=== PATIENT | male | born 1970 | race Two or more races ===

== ENCOUNTER 2020-03-02 04:22 | Inpatient (IN) | payer BC, OTHER, SELFPAY ==
[~2020-03-02] VITALS: Ht 160 cm; Wt 70.9 kg
--- NOTE | 2020-03-02 04:30 | NUR ---
Late entry from 0430: Patient BIB ambulance from home after an unwitnessed syncopal episode. Per EMS, patient's BP upon arrival was 60s systolic. After fluid admin, BP increased to 90s systolic. Per family, patient was in the bathroom and they heard a crash from the outside. They went in to find patient passed out on the floor. Patient is dizzy. AAOx4 but slightly confused about the event. Patient denies drug use. Respirations even and unlabored.
[2020-03-02 04:59] LABS: BASOPHILS # (AUTO) 0.02 x10^3/uL (0-0.1); BASOPHILS % (AUTO) 0 % (0-1); EOSINOPHILS # (AUTO) 0.07 x10^3/uL (0-0.4); EOSINOPHILS % (AUTO) 1 % (1-7); LYMPHOCYTES # (AUTO) 0.78 x10^3/uL (1-3.4); LYMPHOCYTES % (AUTO) 10 % (22-44); MD NO; MEAN CORPUSCULAR HEMOGLOBIN 28.9 pg (27.5-34.5); MEAN CORPUSCULAR HGB CONC 32.5 g/dL (33.2-36.2); MEAN CORPUSCULAR VOLUME 88.9 fL (81-97); MEAN PLATELET VOLUME 8.5 fL (7.4-10.4); MONOCYTES # (AUTO) 0.56 x10^3/uL (0.2-0.8); MONOCYTES % (AUTO) 7 % (2-9); NEUTROPHILS # (AUTO) 6.36 x10^3/uL (1.8-6.8); NEUTROPHILS % (AUTO) 82 % (42-75); PLATELET COUNT 240 x10^3/uL (130-400); RED BLOOD COUNT 3.64 x10^6/uL (4.38-5.82); RED CELL DISTRIBUTION WIDTH 12.9 % (9.4-14.8)
[2020-03-02] MEDS ORDERED: SODIUM CHLORIDE FLUSH 10ML SYR IVF ONE (05:00)
[2020-03-02] MEDS ORDERED: SODIUM CHLORIDE 0.9% 1,000ML IVBOLUS ONE ×2 (05:00→05:30)
[2020-03-02 05:09] LABS: ALBUMIN 2.4 g/dL (3.4-5.0); ANION GAP 8 mmol/L (5-15); CALCIUM 6.8 mg/dL (8.5-10.1); CHLORIDE 107 mmol/L (98-107); CREATININE 0.91 mg/dL (0.7-1.3)
[2020-03-02 05:14] LABS: ALKALINE PHOSPHATASE 74 U/L (45-117); BILIRUBIN,TOTAL 3.6 mg/dL (0.2-1.0); TOTAL PROTEIN 4.9 g/dL (6.4-8.2); TROPONIN I 0.034 ng/mL (0.000-0.045)
[2020-03-02 05:16] LABS: ALANINE AMINOTRANSFERASE 1870 U/L (12-78)
[2020-03-02 05:19] LABS: SALICYLATE LEVEL < 1.7 mg/dL (2.8-20.0)
[2020-03-02 05:58] LABS: AMPHETAMINE SCREEN, URINE Negative (Negative); BARBITURATE SCREEN, URINE Negative (Negative); BENZODIAZEPINE SCREEN, URINE Negative (Negative); CANNABINOID SCREEN, URINE Negative (Negative); COCAINE SCREEN, URINE Negative (Negative); METHADONE SCREEN, URINE Negative (Negative); OPIATE SCREEN, URINE Negative (Negative)
--- NOTE | 2020-03-02 06:56 | NUR ---
Report given to EUSEBIO Buck.
--- NOTE | 2020-03-02 06:57 | NUR ---
received bedside report from florencio cabello.
--- NOTE | 2020-03-02 07:35 | NUR ---
PT RESTING ON GURNEY. 2ND LITER STILL INFUSING FROM PRIOR SHIFT. VSS. BEDSIDE. NO NEEDS REQUESTED AT THIS TIME
[2020-03-02] MEDS ORDERED: LACTATED RINGERS 1,000 ML IVBOLUS ONE (09:00)
--- NOTE | 2020-03-02 09:05 | NUR ---
late entry for 0840. ORTHOSTATIC VS COMPLETED. PT STATED HE FELT THE MOST DIZZY SITTING. PT WAS STABLE STANDING. BEDSIDE. LR ADMINISTERED PER ORDER. NADDuglas. ALSO SPOKE WITH DAUGHTER TO GIVE UPDATE. NO OTHER NEEDS REQUESTED AT THIS TIME
--- NOTE | 2020-03-02 09:58 | NUR ---
ORTHO VS COMPLETED. PT STATES HE FEELS BETTER AND BARLEY DIZZY WHEN HE SITS. NO C/O DIZZINESS WHEN HE IS STANDING. NADN.
--- NOTE | 2020-03-02 10:13 | NUR ---
PT REQUESTING TO USE BATHROOM FOR BM. ;PT STATES HE IS NOT DIZZY WHEN STANDING. ASSISTANCE TO BATHROOM. WITH PT IN BATHROOM.
--- NOTE | 2020-03-02 10:24 | NUR ---
PT ASSISTED BACK FROM BATHROOM. PT MORE WEAK THAN WHEN HE WENT TO BATHROOM. OBVIOUS DARK STOOL WITH BRB. NOTIFIED EDMD. PT BACK TO [facility] S[facility]. ALL MONITORS ATTACHED.
[2020-03-02] MEDS ORDERED: PANTOPRAZOLE 40 MG IV IVPush ONE (11:00)
[2020-03-02] MEDS ORDERED: PANTOPRAZOLE 80 MG in SODIUM CHLORIDE 0.9% 50 ML IV ONE ×2 (11:00→12:00)
[2020-03-02] MEDS ORDERED: PANTOPRAZOLE 80 MG in SODIUM CHLORIDE 0.9% 100 ML IV SCH (11:00)
[2020-03-02 11:10] LABS: ALBUMIN 2.3 g/dL (3.4-5.0); BILIRUBIN, DIRECT 2.2 mg/dL (0.1-0.2)
[2020-03-02 11:16] LABS: INTERNATIONAL NORMALIZED RATIO 1.54 (0.93-1.1); PROTHROMBIN TIME 16.4 Seconds (9.6-11.5)
[2020-03-02 11:17] LABS: BILIRUBIN,INDIRECT 1.3 mg/dL (0.0-2.0); BILIRUBIN,TOTAL 3.5 mg/dL (0.2-1.0); TOTAL PROTEIN 4.7 g/dL (6.4-8.2)
--- NOTE | 2020-03-02 11:32 | NUR ---
ultrasound bedside. nadn. bedside.
--- NOTE | 2020-03-02 11:46 | NUR ---
REPORT TO EUSEBIO WHITEHEAD. RECEIVING RN AWARE THAT BLOOD HAS NOT BEEN STARTED IN ED AND WILL HAVE TO ADMINISTER ON THE FLOOR. ALL QUESTIONS ANSWERED.
[2020-03-02] MEDS ORDERED: PANTOPRAZOLE 40 MG IV ONE (11:49)
[2020-03-02] MEDS ORDERED: ONDANSETRON 2MG/ML, 2ML IV PRN (12:00)
[2020-03-02] MEDS: PANTOPRAZOLE 80 MG in SODIUM CHLORIDE 0.9% 100 ML IV SCH ×2 (12:00→21:35)
[2020-03-02] MEDS ORDERED: CHLORDIAZEPOXIDE 25 MG CAPSULE PO PRN (12:00)
[2020-03-02] MEDS ORDERED: ACETAMINOPHEN 325 MG TABLET PO ONE (12:00)
[2020-03-02 12:16] LABS: TROPONIN I 0.055 ng/mL (0.000-0.045)
--- NOTE | 2020-03-02 12:16 | NUR ---
PT BEING TRANSFERRED TO FLOOR. PROTONIX BOLUS COMPLETE. MANINTENANCE PROTONIX INFUSING AT 10mL/HR PT LEFT WITH ALL PERSONAL BELONGINGS.
--- NOTE | 2020-03-02 12:20 | NUR ---
BLOOD CONSENT SIGNED AND PLACED WITH PT CHART
[2020-03-02 12:33] VITALS: BP 106/68
[2020-03-02 13:12] VITALS: BP 110/72
[2020-03-02 13:23] VITALS: BP 110/72
[2020-03-02 13:35] VITALS: BP 112/70
[2020-03-02 15:08] VITALS: BP 111/71
[2020-03-02 17:13] LABS: TROPONIN I 0.029 ng/mL (0.000-0.045)
[2020-03-02 17:15] LABS: BASOPHILS # (AUTO) 0.02 x10^3/uL (0-0.1); BASOPHILS % (AUTO) 0 % (0-1); EOSINOPHILS # (AUTO) 0.05 x10^3/uL (0-0.4); EOSINOPHILS % (AUTO) 1 % (1-7); LYMPHOCYTES # (AUTO) 1.76 x10^3/uL (1-3.4); LYMPHOCYTES % (AUTO) 22 % (22-44); MD NO; MEAN CORPUSCULAR HEMOGLOBIN 29.6 pg (27.5-34.5); MEAN CORPUSCULAR HGB CONC 32.8 g/dL (33.2-36.2); MEAN CORPUSCULAR VOLUME 90.3 fL (81-97); MEAN PLATELET VOLUME 9.6 fL (7.4-10.4); MONOCYTES # (AUTO) 0.69 x10^3/uL (0.2-0.8); MONOCYTES % (AUTO) 9 % (2-9); NEUTROPHILS # (AUTO) 5.33 x10^3/uL (1.8-6.8); NEUTROPHILS % (AUTO) 68 % (42-75); PLATELET COUNT 194 x10^3/uL (130-400)
[2020-03-02] MEDS: SODIUM CHLORIDE 0.9% 1,000 ML IV SCH (17:36)
[2020-03-02 20:56] LABS: OCCULT BLOOD POSITIVE (NEGATIVE)
[2020-03-02 21:09] VITALS: BP 109/73
[2020-03-02 21:28] LABS: BASOPHILS # (AUTO) 0.02 x10^3/uL (0-0.1); BASOPHILS % (AUTO) 0 % (0-1); EOSINOPHILS # (AUTO) 0.06 x10^3/uL (0-0.4); EOSINOPHILS % (AUTO) 1 % (1-7); LYMPHOCYTES # (AUTO) 1.47 x10^3/uL (1-3.4); LYMPHOCYTES % (AUTO) 19 % (22-44); MD NO; MEAN CORPUSCULAR HEMOGLOBIN 29.8 pg (27.5-34.5); MEAN CORPUSCULAR HGB CONC 33.3 g/dL (33.2-36.2); MEAN CORPUSCULAR VOLUME 89.3 fL (81-97); MEAN PLATELET VOLUME 9.3 fL (7.4-10.4); MONOCYTES # (AUTO) 0.72 x10^3/uL (0.2-0.8); MONOCYTES % (AUTO) 9 % (2-9); NEUTROPHILS # (AUTO) 5.36 x10^3/uL (1.8-6.8); NEUTROPHILS % (AUTO) 70 % (42-75); PLATELET COUNT 186 x10^3/uL (130-400); RED BLOOD COUNT 3.31 x10^6/uL (4.38-5.82); RED CELL DISTRIBUTION WIDTH 14.1 % (9.4-14.8)
[2020-03-02 22:11] LABS: OCCULT BLOOD POSITIVE (NEGATIVE)
[2020-03-03] VITALS (9 sets, daily range): BP systolic 90–108; BP diastolic 57–72
[2020-03-03] MEDS: PANTOPRAZOLE 80 MG in SODIUM CHLORIDE 0.9% 100 ML IV SCH ×2 (05:40→16:27)
[2020-03-03] MEDS ORDERED: PEDS NS BOLUS IV.SOLN 20ML/KG IVBOLUS ONE (06:00)
[2020-03-03 06:06] LABS: INTERNATIONAL NORMALIZED RATIO 1.22 (0.93-1.1)
[2020-03-03 06:14] LABS: ALBUMIN 2.1 g/dL (3.4-5.0); ANION GAP 10 mmol/L (5-15); BASOPHILS # (AUTO) 0.02 x10^3/uL (0-0.1); BASOPHILS % (AUTO) 0 % (0-1); CALCIUM 6.7 mg/dL (8.5-10.1); CHLORIDE 116 mmol/L (98-107); EOSINOPHILS # (AUTO) 0.05 x10^3/uL (0-0.4); EOSINOPHILS % (AUTO) 1 % (1-7); LYMPHOCYTES # (AUTO) 1.76 x10^3/uL (1-3.4); LYMPHOCYTES % (AUTO) 25 % (22-44); MD NO; MEAN CORPUSCULAR HEMOGLOBIN 30.4 pg (27.5-34.5); MEAN CORPUSCULAR HGB CONC 33.6 g/dL (33.2-36.2); MEAN CORPUSCULAR VOLUME 90.2 fL (81-97); MEAN PLATELET VOLUME 9.4 fL (7.4-10.4); MONOCYTES # (AUTO) 0.57 x10^3/uL (0.2-0.8); MONOCYTES % (AUTO) 8 % (2-9); NEUTROPHILS # (AUTO) 4.79 x10^3/uL (1.8-6.8); NEUTROPHILS % (AUTO) 67 % (42-75); PLATELET COUNT 159 x10^3/uL (130-400); RED BLOOD COUNT 2.48 x10^6/uL (4.38-5.82); RED CELL DISTRIBUTION WIDTH 14.1 % (9.4-14.8)
[2020-03-03 06:25] LABS: ALANINE AMINOTRANSFERASE 1020 U/L (12-78); ALKALINE PHOSPHATASE 64 U/L (45-117); BILIRUBIN,TOTAL 2.6 mg/dL (0.2-1.0); CREATININE 0.94 mg/dL (0.7-1.3); TOTAL PROTEIN 4.3 g/dL (6.4-8.2)
[2020-03-03] MEDS ORDERED: CHLORHEXIDINE 15 ML UDC ONE (10:46)
[2020-03-03] MEDS ORDERED: PROPOFOL 10 MG/ML, 100ML IV ONE (11:47)
[2020-03-03] MEDS ORDERED: FENTANYL PF 100 MCG/2ML ONE (11:48)
[2020-03-03] MEDS ORDERED: FENTANYL PF 100 MCG/2ML IV PRN (12:00)
[2020-03-03] MEDS ORDERED: ONDANSETRON 2MG/ML, 2ML IVPush PRN (12:00)
[2020-03-03] MEDS ORDERED: EPINEPHRINE SYRINGE 0.1 MG/ML, 10ML ONE (12:44)
[2020-03-03] MEDS: OMEPRAZOLE 20 MG CAPSULE.DR PO SCH (16:46)
[2020-03-03] MEDS: SUCRALFATE 1 GM/10 ML UDC PO SCH ×2 (16:46→21:11)
[2020-03-03 22:04] LABS: OCCULT BLOOD POSITIVE (NEGATIVE)
[2020-03-04] VITALS (14 sets, daily range): BP systolic 100–133; BP diastolic 57–76
[2020-03-04] MEDS: PANTOPRAZOLE 80 MG in SODIUM CHLORIDE 0.9% 100 ML IV SCH ×3 (02:38→23:59)
[2020-03-04] MEDS: SODIUM CHLORIDE 0.9% 1,000 ML IV SCH (04:07)
[2020-03-04] MEDS: SUCRALFATE 1 GM/10 ML UDC PO SCH ×4 (05:42→20:42)
[2020-03-04] MEDS: OMEPRAZOLE 20 MG CAPSULE.DR PO SCH ×2 (05:42→17:28)
[2020-03-04 06:14] LABS: ALANINE AMINOTRANSFERASE 707 U/L (12-78); ALBUMIN 2.2 g/dL (3.4-5.0); ANION GAP 8 mmol/L (5-15); CALCIUM 7.1 mg/dL (8.5-10.1); CHLORIDE 111 mmol/L (98-107); CREATININE 0.82 mg/dL (0.7-1.3)
[2020-03-04 06:16] LABS: ALKALINE PHOSPHATASE 80 U/L (45-117); BILIRUBIN,TOTAL 1.4 mg/dL (0.2-1.0); TOTAL PROTEIN 4.6 g/dL (6.4-8.2)
[2020-03-04 06:29] LABS: MEAN CORPUSCULAR HEMOGLOBIN 29.9 pg (27.5-34.5); MEAN CORPUSCULAR HGB CONC 33.3 g/dL (33.2-36.2); MEAN CORPUSCULAR VOLUME 89.9 fL (81-97); MEAN PLATELET VOLUME 9.5 fL (7.4-10.4); PLATELET COUNT 134 x10^3/uL (130-400); RED BLOOD COUNT 2.26 x10^6/uL (4.38-5.82); RED CELL DISTRIBUTION WIDTH 14.8 % (9.4-14.8)
[2020-03-04 07:26] LABS: BASOPHILS # (AUTO) 0.04 x10^3/uL (0-0.1); BASOPHILS % (AUTO) 0 % (0-1); EOSINOPHILS # (AUTO) 0.09 x10^3/uL (0-0.4); EOSINOPHILS % (AUTO) 1 % (1-7); LYMPHOCYTES # (AUTO) 1.66 x10^3/uL (1-3.4); LYMPHOCYTES % (AUTO) 16 % (22-44); MD SCAN; MONOCYTES # (AUTO) 0.84 x10^3/uL (0.2-0.8); MONOCYTES % (AUTO) 8 % (2-9); NEUTROPHILS # (AUTO) 7.53 x10^3/uL (1.8-6.8); NEUTROPHILS % (AUTO) 74 % (42-75)
[2020-03-04] MEDS: ACETAMINOPHEN 325 MG TABLET PO PRN (23:34)
[2020-03-05 01:51] VITALS: BP 107/65
[2020-03-05] MEDS: OMEPRAZOLE 20 MG CAPSULE.DR PO SCH ×2 (05:25→15:51)
[2020-03-05 05:43] LABS: BASOPHILS # (AUTO) 0.04 x10^3/uL (0-0.1); BASOPHILS % (AUTO) 1 % (0-1); EOSINOPHILS # (AUTO) 0.12 x10^3/uL (0-0.4); EOSINOPHILS % (AUTO) 2 % (1-7); LYMPHOCYTES # (AUTO) 1.73 x10^3/uL (1-3.4); LYMPHOCYTES % (AUTO) 23 % (22-44); MD NO; MEAN CORPUSCULAR HEMOGLOBIN 30.3 pg (27.5-34.5); MEAN CORPUSCULAR HGB CONC 33.8 g/dL (33.2-36.2); MEAN CORPUSCULAR VOLUME 89.6 fL (81-97); MEAN PLATELET VOLUME 8.9 fL (7.4-10.4); MONOCYTES # (AUTO) 0.67 x10^3/uL (0.2-0.8); MONOCYTES % (AUTO) 9 % (2-9); NEUTROPHILS % (AUTO) 67 % (42-75); PLATELET COUNT 137 x10^3/uL (130-400); RED BLOOD COUNT 2.83 x10^6/uL (4.38-5.82); RED CELL DISTRIBUTION WIDTH 14.2 % (9.4-14.8)
[2020-03-05 05:46] LABS: ALBUMIN 2.3 g/dL (3.4-5.0); CHLORIDE 109 mmol/L (98-107)
[2020-03-05 05:52] LABS: ALANINE AMINOTRANSFERASE 572 U/L (12-78); ALKALINE PHOSPHATASE 84 U/L (45-117); ANION GAP 7 mmol/L (5-15); BILIRUBIN,TOTAL 1.4 mg/dL (0.2-1.0); CALCIUM 7.4 mg/dL (8.5-10.1); CREATININE 0.68 mg/dL (0.7-1.3); TOTAL PROTEIN 5.1 g/dL (6.4-8.2)
[2020-03-05] MEDS: SODIUM CHLORIDE 0.9% 1,000 ML IV SCH (06:04)
[2020-03-05] MEDS: SUCRALFATE 1 GM/10 ML UDC PO SCH ×4 (06:06→20:46)
[2020-03-05] MEDS: ACETAMINOPHEN 325 MG TABLET PO PRN ×2 (06:16→20:46)
[2020-03-05 07:12] VITALS: BP 105/67
[2020-03-05 12:21] VITALS: BP 113/73
[2020-03-05 19:16] VITALS: BP 119/73
[2020-03-06 01:19] VITALS: BP 111/63
[2020-03-06] MEDS: OMEPRAZOLE 20 MG CAPSULE.DR PO SCH (05:27)
[2020-03-06] MEDS: SODIUM CHLORIDE 0.9% 1,000 ML IV SCH (05:27)
[2020-03-06] MEDS ORDERED: PANTOPRAZOLE 40MG TABLET PO SCH (06:00)
[2020-03-06] MEDS: SUCRALFATE 1 GM/10 ML UDC PO SCH ×2 (06:13→10:49)
[2020-03-06 06:40] LABS: BASOPHILS # (AUTO) 0.02 x10^3/uL (0-0.1); BASOPHILS % (AUTO) 0 % (0-1); EOSINOPHILS % (AUTO) 1 % (1-7); LYMPHOCYTES # (AUTO) 1.51 x10^3/uL (1-3.4); LYMPHOCYTES % (AUTO) 21 % (22-44); MD NO; MEAN CORPUSCULAR HEMOGLOBIN 30.4 pg (27.5-34.5); MEAN CORPUSCULAR HGB CONC 33.6 g/dL (33.2-36.2); MEAN CORPUSCULAR VOLUME 90.6 fL (81-97); MEAN PLATELET VOLUME 8.7 fL (7.4-10.4); MONOCYTES # (AUTO) 0.73 x10^3/uL (0.2-0.8); MONOCYTES % (AUTO) 10 % (2-9); NEUTROPHILS # (AUTO) 5.01 x10^3/uL (1.8-6.8); NEUTROPHILS % (AUTO) 68 % (42-75); PLATELET COUNT 187 x10^3/uL (130-400); RED BLOOD COUNT 2.79 x10^6/uL (4.38-5.82); RED CELL DISTRIBUTION WIDTH 14.8 % (9.4-14.8)
[2020-03-06] MEDS: ACETAMINOPHEN 325 MG TABLET PO PRN (06:49)
[2020-03-06 07:36] VITALS: BP 117/70
[2020-03-06] MEDS ORDERED: PANT40TA5 PO (09:10)
[2020-03-06] MEDS ORDERED: SUCR1ORA5 PO (09:10)
[2020-03-06 12:01] VITALS: BP 125/70
== END 2020-03-06 13:14 | disposition home or self-care (01) | DRG 381 ==
LOC: ED 06:28 → EDIP 10:47 → 4WST 12:29 → DCLOUNGE 03-06 12:52
PROVIDERS: ADMIT Internal Medicine; ATTEND Internal Medicine
PROC: 30233N1 Transfusion of Nonautologous Red Blood Cells into Peripheral Vein, Percutaneous Approach (ICD-10-PCS; 2020-03-02)
PROC: 0W3P8ZZ Control Bleeding in Gastrointestinal Tract, Via Natural or Artificial Opening Endoscopic (ICD-10-PCS; principal; 2020-03-03 11:00)
DX: K22.11 Ulcer of esophagus with bleeding (principal); D62 Acute posthemorrhagic anemia; D68.9 Coagulation defect, unspecified; F10.20 Alcohol dependence, uncomplicated; I95.1 Orthostatic hypotension; K70.9 Alcoholic liver disease, unspecified; K75.9 Inflammatory liver disease, unspecified; Z90.49 Acquired absence of other specified parts of digestive tract
CPT/HCPCS: 31500; 36415; 99291; J7030; 71045; 80053; 80074; 80076; 80307; 82272; 82962; 84484; 85014; 85018; 85025; 85610; 86850; 86900; 86923; 93005; 93306; 93975; G0378; J2704; J3010; C9113; J7120; P9016